=== PATIENT | male | born 1995 | race Caucasian/White ===

== ENCOUNTER 2017-05-21 22:54 | Emergency (ER) | payer SELFPAY ==
[~2017-05-21] VITALS: Ht 180.3 cm; Wt 75.0 kg
[2017-05-22] MEDS ORDERED: KETOROLAC TROMETHAMINE 60 MG/2 ML VIAL IM ONE (00:30)
[2017-05-22 01:52] VITALS: BP 133/79
== END 2017-05-22 01:52 | disposition home or self-care (01) ==
LOC: EMS 22:55
DX: S43.004A Unspecified dislocation of right shoulder joint, initial encounter (principal); F12.90 Cannabis use, unspecified, uncomplicated; F17.210 Nicotine dependence, cigarettes, uncomplicated; X50.9XXA Other and unspecified overexertion or strenuous movements or postures, initial encounter; Y93.89 Activity, other specified; Y92.89 Other specified places as the place of occurrence of the external cause; Y99.8 Other external cause status
CPT/HCPCS: 23650; 73030; 99284; 99406; J1885

== ENCOUNTER 2019-07-06 10:08 | Emergency (ER) | payer SELFPAY ==
[~2019-07-06] VITALS: Ht 167.6 cm; Wt 68.2 kg
[2019-07-06] MEDS ORDERED: ACETAMINOPHEN 500 MG TABLET PO ONE (10:15)
[2019-07-06] MEDS: IBUPROFEN 600 MG TABLET PO ONE ×2 (10:19→10:22)
[2019-07-06 11:49] VITALS: BP 135/79
== END 2019-07-06 11:51 | disposition home or self-care (01) ==
LOC: EMS 10:10
DX: S43.004A Unspecified dislocation of right shoulder joint, initial encounter (principal); F17.210 Nicotine dependence, cigarettes, uncomplicated; F12.90 Cannabis use, unspecified, uncomplicated; W06.XXXA Fall from bed, initial encounter; Y93.89 Activity, other specified; Y92.89 Other specified places as the place of occurrence of the external cause; Y99.8 Other external cause status
CPT/HCPCS: 23650; 99406

== ENCOUNTER 2019-12-14 10:24 | Emergency (ER) | payer MEDICAID ==
[~2019-12-14] VITALS: Ht 177.8 cm; Wt 75.0 kg
[2019-12-14] MEDS ORDERED: KETOROLAC TROMETHAMINE 30 MG/ML VIAL IM ONE (11:00)
[2019-12-14 11:55] VITALS: BP 116/68
== END 2019-12-14 12:16 | disposition home or self-care (01) ==
LOC: EMS 10:26
DX: M24.411 Recurrent dislocation, right shoulder (principal); M21.921 Unspecified acquired deformity of right upper arm; F17.210 Nicotine dependence, cigarettes, uncomplicated; F12.90 Cannabis use, unspecified, uncomplicated
CPT/HCPCS: 23650; 73030; 99284; 99406; J1885

== ENCOUNTER 2020-03-15 01:51 | Emergency (ER) | payer MEDICAID ==
[~2020-03-15] VITALS: Ht 177.8 cm; Wt 79.5 kg
[2020-03-15] MEDS ORDERED: IBUPROFEN 600 MG TABLET PO ONE (02:00)
[2020-03-15 02:59] VITALS: BP 137/80
== END 2020-03-15 03:40 | disposition home or self-care (01) ==
LOC: EMS 01:51
DX: M24.411 Recurrent dislocation, right shoulder (principal); F17.210 Nicotine dependence, cigarettes, uncomplicated; F12.90 Cannabis use, unspecified, uncomplicated
CPT/HCPCS: 23650; 73030-TC; Z7502; Z7610

== ENCOUNTER 2020-05-03 11:51 | Emergency (ER) | payer MEDICAID ==
[~2020-05-03] VITALS: Ht 180.3 cm; Wt 75.0 kg
[2020-05-03 14:50] VITALS: BP 123/81
== END 2020-05-03 14:51 | disposition home or self-care (01) ==
LOC: EMS 11:51
DX: M54.32 Sciatica, left side (principal); M54.31 Sciatica, right side; F17.210 Nicotine dependence, cigarettes, uncomplicated; F12.90 Cannabis use, unspecified, uncomplicated
CPT/HCPCS: 72100; 73502

== ENCOUNTER 2020-05-12 07:36 | Emergency (ER) | payer SELFPAY ==
[~2020-05-12] VITALS: Ht 180.3 cm; Wt 72.7 kg
[2020-05-12] MEDS ORDERED: LORazepam 2 MG/ML VIAL IVP ONE (08:15)
[2020-05-12] MEDS ORDERED: KETAMINE HCL 50 MG/ML 10 ML VIAL IVP ONE (08:15)
[2020-05-12 09:33] VITALS: BP 118/64
== END 2020-05-12 10:06 | disposition home or self-care (01) ==
LOC: EMS 07:36
DX: M24.411 Recurrent dislocation, right shoulder (principal); F17.210 Nicotine dependence, cigarettes, uncomplicated; F12.90 Cannabis use, unspecified, uncomplicated
CPT/HCPCS: 23650; 73030; 96374; 99152; 99153; 99285; J2060; J3490

== ENCOUNTER 2020-11-26 20:54 | Emergency (ER) | payer MEDICAID ==
[~2020-11-26] VITALS: Ht 180.3 cm; Wt 81.8 kg
[2020-11-26 21:04] VITALS: BP 143/89
== END 2020-11-27 00:36 | disposition home or self-care (01) ==
LOC: EMS 20:54
DX: M25.511 Pain in right shoulder (principal); F17.210 Nicotine dependence, cigarettes, uncomplicated; F12.90 Cannabis use, unspecified, uncomplicated
CPT/HCPCS: 99283

== ENCOUNTER 2021-01-13 16:25 | Emergency (ER) | payer MEDICAID ==
[~2021-01-13] VITALS: Ht 180.3 cm; Wt 81.8 kg
[2021-01-13] MEDS ORDERED: ACETAMINOPHEN 500 MG TABLET PO ONE (19:30)
[2021-01-13 20:40] VITALS: BP 136/72
== END 2021-01-13 21:53 | disposition home or self-care (01) ==
LOC: EMS 16:25
DX: S02.2XXA Fracture of nasal bones, initial encounter for closed fracture (principal); Z20.822 Contact with and (suspected) exposure to COVID-19; F17.210 Nicotine dependence, cigarettes, uncomplicated; F12.90 Cannabis use, unspecified, uncomplicated; W22.8XXA Striking against or struck by other objects, initial encounter; Y93.89 Activity, other specified; Y92.89 Other specified places as the place of occurrence of the external cause; Y99.8 Other external cause status
CPT/HCPCS: 70450; 70486; 99285; U0003